=== PATIENT | female | born 1985 | race Two or more races ===

== ENCOUNTER 2017-03-17 08:40 | Emergency (ER) | payer MEDICAID ==
[2017-03-17 09:41] LABS: BASOPHIL % 0.2 % (0-2); PLATELET COUNT 232 x10^3mcL (130-400)
[2017-03-17 09:54] LABS: RED CELL DISTRIBUTION WIDTH 15.1 % (11.5-14.5)
[2017-03-17 10:01] LABS: CALCIUM 8.4 mg/dL (8.5-10.1); CARBON DIOXIDE 17.2 mmol/L (21-32); CHLORIDE SERUM 104 mmol/L (98-107); CREATININE SERUM 0.8 mg/dL (0.6-1.0); GFR1 > 60 mL/min; GLUCOSE SERUM 92 mg/dL (74-106); POTASSIUM SERUM 3.4 mmol/L (3.5-5.1); SODIUM SERUM 140 mmol/L (136-145)
[2017-03-17 10:07] LABS: ALBUMIN 3.8 g/dL (3.4-5.0); ALKALINE PHOSPHATASE 86 U/L (46-116); ALT/SGPT 51 U/L (14-59); AST/SGOT 34 U/L (15-37); BILIRUBIN TOTAL 0.2 mg/dL (0.20-1.00)
[2017-03-17 10:09] LABS: TOTAL PROTEIN, SERUM 8.3 g/dL (6.4-8.2)
[2017-03-17 11:06] VITALS: BP 123/81
== END 2017-03-17 11:06 | disposition home or self-care (01) ==
LOC: ED 08:40
PROVIDERS: Emergency Medicine
DX: R19.7 Diarrhea, unspecified (principal); R10.9 Unspecified abdominal pain
CPT/HCPCS: 87046; 87046-59